=== PATIENT | female | born 1980 | race Caucasian/White ===

== ENCOUNTER 2016-09-06 05:34 | Inpatient (IN) | payer OTHER ==
--- NOTE | 2016-08-23 16:02 | GHP ---
[f rep st] HISTORY AND PHYSICAL Amended report DATE OF ADMISSION: 09/06/2016 ADMITTING DIAGNOSES: 1. Intrauterine at 39 weeks. 2. Previous section for repeat section. 3. Request for permanent sterilization. HISTORY OF PRESENT ILLNESS: Patient is a 36-year-old, 2, para 1-0-0-1 at 39 weeks with an HANNAH of 09/13/2016 which is by LMP 12/08/2015 and confirmed by an early ultrasound at 6 weeks. Patient presents to the office today for a preop visit. Patient does have a history of a previous C section for failure to progress with arrest of dilatation at 3 cm. She is requesting an elective repeat . She is also requesting permanent sterilization. Surgery is schedule for September 06, 2016 at 0730 am. Patient does have good care at [facility] and presented in her 1st trimester. is complicated by advanced maternal age. Patient did get genetic testing: Verifi was negative, Trio negative and single AFP negative. course is overall unremarkable. Patient did receive a Tdap as well as a flu vaccine. On 20-week scan, there were suboptimal heart views. Followup ultrasound in 4 weeks , heart views were visualized and normal. In her 3rd trimester, patient did have an SHAUNA that was borderline polyhydramnios at 21 cm. Patient has had serial ultrasounds, and today on ultrasound SHAUNA is normal at 11 cm, and baby is cephalic. GBS culture was obtained today. PAST OB HISTORY: The patient is multiparous. In 2011 gave via to a female weighing 7 pounds at 41 weeks; failure to progress, arrest of dilatation at 3 cm and a hemorrhage. 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 Cycles are regular every 30 days, length x5 days. Last menstrual period 12/08/2015. Patient denies any history of abnormal Pap smears and Pap smear during was negative. Denies any exposure to STDs. Gonorrhea and chlamydia testing was negative in as well. PAST MEDICAL HISTORY: Unremarkable. PAST SURGICAL HISTORY: Remarkable for 2011 and has had a broken leg from a ski accident. MEDICATIONS: vitamins. ALLERGIES: NKDA. FAMILY HISTORY: Paternal grandmother with diabetes. Mother breast cancer, age 59. Father of the baby has sister with trisomy-19. LABORATORY DATA: Patient is A positive, antibody negative, RPR nonreactive, rubella immune, hepatitis B surface antigen negative, HIV negative. Trio scan negative. Verifi negative. Single AFP negative. Pap and gonorrhea and chlamydia cultures negative. A 1-hour Glucola was normal at 83. H and H 3rd trimester 11.9/35.4, and GBS culture collected today. PHYSICAL EXAMINATION ON ADMISSION: VITAL SIGNS: Stable. Patient afebrile. CONSTITUTIONAL: Well-nourished, well developed 36-year-old female. Alert and oriented x3. No apparent distress. HEART: Regular rate and rhythm without murmur. LUNGS: Clear to auscultation. ABDOMEN: Gravid, nondistended, nontender, soft. EXTREMITIES: Normal to inspection without calf tenderness and edema. PELVIC: Deferred. ASSESSMENT AND PLAN: Patient is a 36-year-old 2, para 1-0-0-1 at 39 weeks with an estimated due date 09/13/2016 who presents with a previous C- section and requests permanent sterilization for elective repeat and bilateral tubal ligation. PLAN: 1. Today, surgical consents were obtained. Risks, benefits, and alternatives were reviewed with patient, including, but not limited to bleeding, infection, damage to surrounding organs. Discussed the need for blood transfusion in case of life-threatening bleeding. Also discussed risks with permanent sterilization including failure rate, and risk of tubal . Patient agrees to proceed with surgery and all consents signed. 2. Admit to Labor and Delivery for repeat C section and bilateral tubal ligation. 3. Antibiotics marketing production coordinator to OR. /[id number]/MODL Add acc#, 09/06/16, rafaela NORRIS
--- NOTE | 2016-09-05 10:12 | GHP ---
[f rep st] HISTORY AND PHYSICAL Amended report DATE OF ADMISSION: 09/06/2016 ADMITTING DIAGNOSES: 1. Intrauterine at 39 weeks. 2. Previous , desires elective repeat . 3. Request for permanent sterilization. HISTORY OF PRESENT ILLNESS: The patient is a 36-year-old, 2, para 1-0-0 -1 at 39 weeks, with estimated due date 09/13/2016 by last menstrual period 12/2015 and confirmed by a first-trimester ultrasound. Patient has a history of a previous secondary to failure to progress, arrest of dilatation at 3 cm, and a hemorrhage. Patient desires an elective repeat C- section at this time. Patient also requests permanent sterilization and desires a tubal ligation at the time of the . The patient has good care at [facility], and presented early in her first trimester. is complicated by advanced maternal age. The patient did get all genetic testing done. Verifi was negative. Trio screen was negative. Single AFP was also negative. The patient did develop anemia of and had a hematocrit of 35.4 in her 3rd trimester. She is on iron and tolerating it. The patient did have an elevated amniotic fluid volume at 20 weeks, measuring at 19 cm. Ultrasound was repeated in the 3rd trimester at fluid was normal at 11 cm. She did receive both Tdap and flu vaccine during the . GBS is negative. PAST OB HISTORY: Patient had a in 2011; baby girl weighing 7 pounds, at 41 weeks gestation, failure to progress, and arrest of dilatation at 3 cm with a hemorrhage. 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 Cycles are every 30 days x5 days. Last menstrual period, 12/08/2015. The patient denies any abnormal Pap smears and denies any exposure to sexually transmitted diseases. Both chlamydia and gonorrhea, as well as Pap smear were negative in this . PAST MEDICAL HISTORY: Unremarkable. PAST SURGICAL HISTORY: Remarkable for a in 2011 and a broken leg secondary to a ski accident. FAMILY HISTORY: Mother had breast cancer, age of 59. A paternal grandmother with diabetes and a CVA. The father of the baby, his sister has trisomy 19. MEDICATIONS: PNV, iron. ALLERGIES: No known drug allergies. LABS: A-positive, antibody negative. RPR nonreactive. Rubella immune. Hepatitis B surface antigen negative. HIV negative. Trio screen negative. Pap negative. Gonorrhea and chlamydia cultures negative. AFP negative. Verifi negative. A 3rd trimester H and H of 11.9 and 35.4. A 1- hour Glucola 83. GBS is negative. PHYSICAL EXAM: VITAL SIGNS: On admission, vital signs are stable. Afebrile. GENERAL: The patient is a well-nourished, well-developed 36-year-old female, alert and oriented x3. No apparent distress. HEART: Regular rate, rhythm. LUNGS: Clear to auscultation. ABDOMEN: Gravid, soft, nontender, nondistended. Active bowel sounds. PELVIC: Deferred. EXTREMITIES: Normal to inspection without calf tenderness or edema. ASSESSMENT: The patient is a 36-year-old, 2, para 1-0-0-1 at 39 weeks, previous , who presents for an elective repeat and request for sterilization. PLAN: 1. Surgical consents were obtained in the office. Risks, benefits, and alternatives were reviewed with the patient including, but not limited to, bleeding, infection, damage to surrounding organs. The patient does desire permanent sterilization. We also discussed the risks of tubal , as well as the failure rate. 2. Antibiotics on-call to the OR. The patient has no known drug allergies. We will proceed with 2 g of Ancef. 3. Patient is aware of the risks of the procedure and is willing to proceed. /[id number]/MODL Add acc#, 09/06/16, rafaela NORRIS
[2016-09-06] MEDS ORDERED: LR 500 ML IV ONE (05:54)
[2016-09-06] MEDS ORDERED: CITRIC ACID/SODIUM CITRATE 30 ML UDCUP PO ONE (05:54)
[2016-09-06] MEDS ORDERED: ceFAZolin 2 GM/DEXTROSE 100 ML IV ONE (05:54)
[2016-09-06] MEDS ORDERED: TERBUTALINE SULFATE 1 MG/ML VIAL ONE (05:58)
[2016-09-06] MEDS ORDERED: OXYTOCIN 10 UNIT/ML VIAL ONE (05:58)
[2016-09-06] MEDS ORDERED: MISOPROSTOL 200 MCG TAB ONE (05:59)
[2016-09-06] MEDS ORDERED: LR 1,000 ML IV SCH (06:00)
[2016-09-06] MEDS ORDERED: CITRIC ACID/SODIUM CITRATE 30 ML UDCUP ONE (06:22)
[2016-09-06] MEDS ORDERED: CEFAZOLIN 2 GM/DEXTROSE/100 ML BAG IV ONE (06:23)
[2016-09-06 06:27] LABS: ADD DIFF? YES; ADD MORPH? NO; ADD SCAN? NO; ATYPICAL LYMPHOCYTE FLAG 0 (0-99); FRAGMENT RBC FLAG 0 (0-99); HEMATOCRIT 38.3 % (38.0-47.0); HEMOGLOBIN 13.6 g/dL (12.6-16.3); LEFT SHIFT FLG 30 (0-99); LIPEMIA HEMOLYSIS FLAG 90 (0-99); MEAN CELL HEMOGLOBIN 34.1 pg (27.9-34.1); MEAN CELL HEMOGLOBIN CONCENTR. 35.5 g/dL (32.4-36.7); MEAN PLATELET VOLUME 9.6 fL (8.7-11.7); PLATELET CLUMPS FLAG 10 (0-99); PLATELET COUNT 199 10^3/uL (150-400); RED BLOOD CELL COUNT 3.99 10^6/uL (4.18-5.33); RED CELL DISTRIBUTION WIDTH 12.7 % (11.5-15.2)
[2016-09-06] MEDS ORDERED: METOCLOPRAMIDE 10 MG/2 ML VIAL IVP ONE (06:44)
[2016-09-06] MEDS ORDERED: FAMOTIDINE 20 MG/NACL 50 ML IV ONE (06:45)
[2016-09-06] MEDS ORDERED: METOCLOPRAMIDE 10 MG/2 ML VIAL ONE (07:00)
[2016-09-06] MEDS ORDERED: OXYTOCIN 100 UNITS/10 ML VIAL ONE (07:20)
[2016-09-06] MEDS ORDERED: ONDANSETRON 4 MG/2 ML VIAL ONE ×2 (07:20→08:05)
[2016-09-06 07:22] LABS: PLATELET ESTIMATE ADEQUATE (ADEQ)
[2016-09-06] MEDS ORDERED: morphINE PF 5 MG/10 ML INJ ONE (07:35)
[2016-09-06] MEDS ORDERED: PHENYLEPHRINE HCL 100 MCG/ML SYR ONE ×2 (07:50→08:05)
[2016-09-06] MEDS ORDERED: epHEDrine SULFATE 10 MG/ML SYR ONE ×3 (07:53→08:03)
[2016-09-06] MEDS ORDERED: MIDAZOLAM 2 MG/2 ML VIAL ONE (08:36)
[2016-09-06] MEDS ORDERED: fentaNYL 100 MCG/2 ML INJ IVP PRN (09:03)
[2016-09-06] MEDS ORDERED: NALOXONE HCL 0.4 MG/ML INJ IVP PRN (09:03)
[2016-09-06] MEDS ORDERED: PHENYLEPHRINE HCL 100 MCG/ML SYR IVP PRN (09:03)
[2016-09-06] MEDS ORDERED: DOCUSATE SODIUM 100 MG CAP PO PRN (09:07)
[2016-09-06] MEDS ORDERED: POLYETHYLENE GLYCOL 3350 17 GM PKT PO PRN (09:07)
[2016-09-06] MEDS ORDERED: MAGNESIUM HYDROXIDE 30 ML UDCUP PO PRN (09:07)
[2016-09-06] MEDS ORDERED: LACTULOSE 20 GM/30 ML UDCUP PO PRN (09:07)
[2016-09-06] MEDS ORDERED: BISACODYL 10 MG SUPP PR PRN (09:07)
--- NOTE | 2016-09-06 09:13 | OBPROC ---
- Delivery Pre-op Diagnoses: Previous , desires elective repeat . Request for permanent sterilization Post-op Diagnoses: Previous , desires elective repeat . Request for permanent sterilization Procedure: Repeat, Low Transverse, Tubal Ligation (Modified [place]) Surgeon: Deepa Timmons Sr Vice President: Peace Flores Anesthesiologist: Nemesio Oro Maintenance Supervisor Electrical/FINISHED YARN EXAMINER: Aishwarya Raymond Anesthesia: Spinal Complications: Nucal Cord (x1 ; loose, slipped) Findings: Grossly normal appearing uterus, tubes and ovaries b/l. The uterine incision was noted to be oozing after second layer, Adebayo was then placed for further hemostasis Specimen(s)/Path: Fallopian Tube(s) IV Fluid (ml): 2,500 EBL: 800 UO-50 cc clear urine - [place] Info Infant A Delivery Date: 09/06/16 Delivery Time: 08:10 Sex of Infant: Female (Maricruz) Score (1 Min): 8 Score (5 Min): 9
[2016-09-06] MEDS: KETOROLAC 30 MG/1 ML SDV IVP SCH ×3 (10:42→22:25)
[2016-09-06] MEDS: CITRIC ACID/SODIUM CITRATE 30 ML UDCUP PO SCH (13:29)
--- NOTE | 2016-09-06 13:51 | GOP ---
[f rep st] OPERATIVE REPORT DATE OF OPERATION: 09/06/2016 SURGEON: Deepa Timmons DO TELEVISION DIRECTOR: Peace Flores, surgical universal worker assisted living. ANESTHESIA: Spinal. PREOPERATIVE DIAGNOSIS: 1. Intrauterine at 39 weeks. 2. Previous section 3. Request for permanent sterilization. POSTOPERATIVE DIAGNOSIS: 1. Intrauterine at 39 weeks. 2. Previous section. 3. Request for permanent sterilization. PROCEDURE PERFORMED: Repeat low transverse section, bilateral tubal ligation. FINDINGS: Grossly normal-appearing uterus, tubes, and ovaries. The uterine incision was noted to be oozing after the second imbricating layer, so Adebayo was placed on the incision and hemostasis was achieved. SPECIMENS: Portions of the fallopian tubes bilaterally. ESTIMATED BLOOD LOSS: 800 cc. INDICATIONS: Patient is a 36-year-old, 2, para 1, 39 weeks, with history of a previous , who requests an elective repeat section and also requests permanent sterilization at this time. DESCRIPTION OF PROCEDURE: Patient was taken to the operating room, where spinal anesthesia was obtained without difficulty. The patient was prepped and draped in the usual sterile fashion, placed in a supine position with a tilt. Skin incision was made with a knife and extended to the fascia with the Bovie. The fascia was then nicked and extended bilaterally with Booth scissors. The fascia was then dissected off the rectus muscles bluntly and in the midline. There was some scar tissue noted from previous surgery. The peritoneum was entered bluntly, and extended bilaterally. A bladder blade was then placed. Visceral peritoneal was entered with the Metzenbaum scissors. Bladder flap was created using both sharp and blunt dissection. Bladder blade was then advanced. The uterus was then incised with a knife in a horizontal fashion, and extended anteriorly and posteriorly. The baby was then delivered in cephalic presentation. There was a loose nuchal cord x1, which was slipped over baby's head. The cord was then clamped and cut. The baby was handed off to the nurse practitioner. It was a baby girl. Apgars were 8 and 9. Placenta was then delivered manually. Trailing membranes were noted. The uterus was then exteriorized. The cavity was cleansed with moist sponges multiple times to make sure there was no retained placenta. The uterine incision was then closed with a running stitch of 0 Vicryl. Hemostasis was noted. A second imbricating layer was then closed with 0 Vicryl stitch. There was noted to be some oozing so at this point, Adebayo was placed on the uterine incision. At this time, we turned our attention to the fallopian tubes. The right fallopian tube was visualized, grasped with a Ulis clamp. An 0 chromic suture was then placed through the mesosalpinx and the isthmic portion of the tube tied front and back, creating about a 2 cm knuckle of tube. A second free tie of 0 chromic was then placed. Knuckle of tube was extirpated with Metzenbaum scissors and sent to Pathology. The stump was hemostatic. The ostia were identified and were cauterized using the bovie. A similar procedure was carried out on the opposite side. Again, a hemostatic stump was assured, and the ostia were visualized and cauterized. At this point we were done with the tubal ligation. We turned our attention back to the uterine incision. Hemostasis was noted. The uterus was then placed back inside the abdominal cavity carefully. The gutters were then cleared of all clots and the tubes were visualized for hemostasis. The rectus muscles were then approximated using 2-0 Vicryl. The fascia was then closed with 0 Vicryl in a running suture. Hemostasis was noted. The skin incision was then closed using a 4-0 Vicryl on a Edison needle. Patient tolerated the procedure well. No complications. Sponge, lap, needle, and instrument correct counts were correct x2. Patient did receive 2 g of Ancef prior to the incision. Patient was then taken out of supine position and taken to the recovery room in stable condition. IV FLUIDS: 2500 cc LR. URINE OUTPUT: 50 cc of clear urine at the end of the procedure. COMPLICATIONS: None. /[id number]/MODL MTDD
[2016-09-06] MEDS ORDERED: ONDANSETRON DISINTEGRATING 4 MG TAB PO PRN (14:09)
[2016-09-06] MEDS ORDERED: ONDANSETRON 4 MG/2 ML VIAL IVP PRN (14:10)
[2016-09-07] MEDS: HYDROCODONE/APAP 5/325 TAB PO PRN ×5 (03:31→22:28)
[2016-09-07] MEDS: KETOROLAC 30 MG/1 ML SDV IVP SCH (04:35)
[2016-09-07] MEDS: SENNOSIDES/DOCUSATE SODIUM TAB PO SCH ×3 (04:50→20:20)
[2016-09-07] MEDS: IBUPROFEN 600 MG TAB PO PRN ×3 (10:08→22:28)
--- NOTE | 2016-09-07 14:05 | SOAPPROG ---
SOAP Progress Note Assessment/Plan: Assessment: POD 1 s/p RCS, BTL Plan: Routine care 09/07/16 14:02 Subjective: Pt doing well. Tired but has had some sleep. Was able to urinate without problems recently. Bld has been like light menses. Baby is latching well - some cramps. Pain has been managed well with ibu / [place] Objective: Vital Signs Temp Pulse Resp BP Pulse Ox 36.9 C 101 H 16 100/65 98 09/07/16 07:50 09/07/16 07:50 09/07/16 07:50 09/07/16 07:50 09/07/16 07:50 Laboratory Results 09/06/16 05:50 09/06/16 09/07/16 09/08/16 05:59 05:59 05:59 Intake Total 3800 Output Total 2024 700 Balance 1775 -700 Physical Exam - Physical Exam General Appearance: WD/WN Abdomen: non-tender (approp post op tenderness), soft, other (incision CDI, FF at umb +1 (prior to voiding)) Pelvic Exam: vaginal bleeding (normal lochia) Extremities: non-tender, pedal edema (minimal) Neuro/Psych: normal mood/affect ICD10 Worksheet Patient Problems: Problems Problem Status Diagnosed History of bilateral tubal ligation Acute Status post repeat low transverse section Acute
[2016-09-08] MEDS: HYDROCODONE/APAP 5/325 TAB PO PRN ×5 (03:07→23:31)
[2016-09-08] MEDS: IBUPROFEN 600 MG TAB PO PRN ×4 (04:15→23:31)
[2016-09-08 08:07] VITALS: RESP 16
[2016-09-08] MEDS: SENNOSIDES/DOCUSATE SODIUM TAB PO SCH (08:21)
[2016-09-08] MEDS: HYDROCORTISONE 1% CREAM TP SCH (18:29)
[2016-09-08 19:40] VITALS: O2SAT 100
--- NOTE | 2016-09-08 21:53 | SOAPPROG ---
SOAP Progress Note Assessment/Plan: Assessment: POD 2 s/p RCS, BTL Plan: Routine care 09/07/16 14:02 09/08/16 21:48 Subjective: Pt seen this am approx at 11:30. LATE NOTE Pt doing well. Pain better controlled with Melvin/ibu. BF going well. 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 urinating fine. Objective: Vital Signs Temp Pulse Resp BP Pulse Ox 36.4 C 99 16 121/78 H 100 09/08/16 19:26 09/08/16 19:26 09/08/16 19:26 09/08/16 19:26 09/08/16 19:26 Laboratory Results 09/06/16 05:50 09/07/16 09/08/16 09/09/16 05:59 05:59 05:59 Intake Total 3800 Output Total 2024 1450 Balance 1775 -1450 Physical Exam - Physical Exam General Appearance: WD/WN Abdomen: non-tender (approp post op tenderness), soft, other (incision CDI, FF at umb -1) Pelvic Exam: vaginal bleeding (normal lochia) Extremities: non-tender, pedal edema Neuro/Psych: normal mood/affect, oriented x 3 ICD10 Worksheet Patient Problems: Problems Problem Status Diagnosed History of bilateral tubal ligation Acute Status post repeat low transverse section Acute
[2016-09-09] MEDS: HYDROCODONE/APAP 5/325 TAB PO PRN ×2 (03:31→09:11)
[2016-09-09] MEDS: SENNOSIDES/DOCUSATE SODIUM TAB PO SCH (03:45)
[2016-09-09] MEDS: IBUPROFEN 600 MG TAB PO PRN (05:29)
[2016-09-09] MEDS: HYDROCORTISONE 1% CREAM TP SCH (05:38)
[2016-09-09 09:12] VITALS: BP 100/70; PULSE 95; TEMP 98.2
--- NOTE | 2016-09-09 09:29 | SOAPPROG ---
SOAP Progress Note Assessment/Plan: Assessment: POD 3 s/p RCS, BTL Plan: Routine care, pt desires D/C home 09/07/16 14:02 09/08/16 21:48 09/09/16 09:26 Subjective: Pt doing well. Bld is light. Pain well controlled. Baby is latching well. Milk is coming in and pt is engorged and a bit uncomfortable. Has had BMs Objective: Vital Signs Temp Pulse Resp BP Pulse Ox 36.8 C 95 16 100/70 100 09/09/16 08:00 09/09/16 08:00 09/08/16 19:26 09/09/16 08:00 09/09/16 08:00 Laboratory Results 09/06/16 05:50 09/08/16 09/09/16 09/10/16 05:59 05:59 05:59 Output Total 1450 Balance -1450 Physical Exam - Physical Exam General Appearance: WD/WN Abdomen: non-tender (approp post op tenderness, erythema on bandage area), soft , other (incision CDI, FF at umb -1) Pelvic Exam: vaginal bleeding (normal lochia) Extremities: non-tender, pedal edema Neuro/Psych: normal mood/affect ICD10 Worksheet Patient Problems: Problems Problem Status Diagnosed History of bilateral tubal ligation Acute Status post repeat low transverse section Acute
== END 2016-09-09 10:20 | disposition home or self-care (01) | DRG 766 ==
LOC: FLD 05:34 → FOB 11:15
PROVIDERS: ADMIT Obstetrics & Gynecology; ATTEND Obstetrics & Gynecology
PROC: 0UB70ZZ Excision of Bilateral Fallopian Tubes, Open Approach (ICD-10-PCS; principal; 2016-09-06)
PROC: 10D00Z1 Extraction of Products of Conception, Low, Open Approach (ICD-10-PCS; principal; 2016-09-06)
DX: O34.29 Maternal care due to uterine scar from other previous surgery (principal); O09.523 Supervision of elderly multigravida, third trimester; O69.81X0 Labor and delivery complicated by cord around neck, without compression, not applicable or unspecified; Z3A.39 39 weeks gestation of pregnancy; Z37.0 Single live birth; Z30.2 Encounter for sterilization
CPT/HCPCS: J0690; J1885; J2250; J2274; J2370; J2405; J2590; J2765; J3105